=== PATIENT | male | born 1945 | race Caucasian/White ===

== ENCOUNTER → 2016-07-06 | Outpatient (CLI) | payer OTHER ==
[~2016-07-06] MED LIST: CIPR-255 PO; HYDR-5688 PO; MISC8TAB PO; MULT-506 PO; OMEG10007 PO; OXYC-57 PO; PHEN-775 PO; PRCUNK PO; PRLSR20 PO; PYRUNK PO; TAMS0.4C38 PO; TERA5CAP PO; TRIPLE FLEX PO
--- NOTE | 2016-07-06 12:45 | DIAGNOSTIC IMAGING REPORT ---
CHEST 2 VIEWS ROUTINE CLINICAL HISTORY: N20.0 [id number] PREOPERATIVE CHEST COMPARISON STUDY: No previous studies for comparison. FINDINGS: The cardiac and mediastinal contours are normal. There is no evidence of focal pulmonary consolidation. There is no evidence of failure. No pleural effusions are visualized.[ IMPRESSION: No active disease in the chest. Electronically signed by: Todd Birmingham M.D. 07/06/2016 12:44 PM Dictated Date/Time: 07/06/2016 12:44 PM
--- NOTE | 2016-07-06 13:22 | DIAGNOSTIC IMAGING REPORT ---
KUB HISTORY: N20.0 Nephrolithiasis BE DONE PRIOR TO [id number] COMPARISON: None. FINDINGS: The bowel gas pattern is unremarkable. There are no dilated loops of small bowel to suggest an obstruction. There are few punctate bilateral renal calculi which are partially obscured by overlying bowel gas. No left ureteral calculi. There is a 6 mm calcification overlying the right L5 transverse process. Calcifications in the deep pelvis likely represent phleboliths. No pneumoperitoneum or pneumatosis. IMPRESSION: 1. A 6 mm calcification overlying the right L5 transverse process. This may represent a mid right ureteral stone. 2. Bilateral nephrolithiasis. Electronically signed by: John Callaway M.D. 07/06/2016 1:20 PM Dictated Date/Time: 07/06/2016 1:19 PM
[2016-07-06 13:27] LABS: BASO % 0.2 %; BASO ABS # 0.02 K/uL (0-0.2); COMPLETE YES; HEMATOCRIT 43.9 % (42-52); IG% 0.1 %; LYMPH % 11.4 %; LYMPH ABS # 0.96 K/uL (1.2-3.4); MEAN CELL VOLUME 92.6 fL (80-100); MEAN CORPUSCULAR HEMOGLOBIN 32.1 pg (25-34); MEAN CORPUSCULAR HGB CONC 34.6 g/dl (32-36); MEAN PLATELET VOLUME 10.1 fL (7.4-10.4); MONO % 6.7 %; NEUT % 80.6 %; PLATELET COUNT 141 K/uL (130-400); RED BLOOD COUNT 4.74 M/uL (4.7-6.1)
[2016-07-06 13:34] LABS: URINE APPEARANCE CLEAR (CLEAR); URINE BILIRUBIN NEG (NEG); URINE COLOR DK YELLOW; URINE EPITHELIAL CELL AUTO 20-30 /lpf (0-5); URINE NITRITE NEG (NEG); URINE SPECIFIC GRAVITY 1.025 (1.000-1.030); UROBILINOGEN NEG (NEG)
[2016-07-06 13:42] LABS: MANUAL MICROSCOPIC REQUIRED? NO; REVIEW REQ? NO
[2016-07-06 15:24] LABS: BLOOD UREA NITROGEN 33 mg/dl (7-18); BUN/CREATININE RATIO 19.3 (10-20); CARBON DIOXIDE 32 mmol/L (21-32); CHLORIDE 108 mmol/L (98-107); POTASSIUM 4.4 mmol/L (3.5-5.1); SODIUM 142 mmol/L (136-145)
== END | disposition home or self-care (01) ==
LOC: C.CPL 11:59
PROVIDERS: ATTEND Urology
DX: N20.0 Calculus of kidney (principal); Z01.818 Encounter for other preprocedural examination

== ENCOUNTER → 2016-07-08 | Day surgery (SDC) | payer OTHER ==
[2016-07-07 11:04] VITALS: Ht 175.3 cm; Wt 77.3 kg
[~2016-07-08] VITALS: Ht 175.3 cm; Wt 77.3 kg
[~2016-07-08] MED LIST changes: +ACETAMINOPHEN 325 MG TAB PO PRN; +ATROPINE SULFATE 0.1 MG/ML 5ML SYR IV PRN; +CIPROFLOXACIN 400MG / D5W IV SCH; +EpHEDrine SULFATE 50MG/5ML SYR ONE; +EpHEDrine SULFATE INJ 50 MG/ML AMP IV PRN; +FENTANYL CITRATE INJ 50 MCG/1 ML 2 ML VIAL IV PRN; +FENTANYL CITRATE INJ 50 MCG/1 ML 2 ML VIAL ONE; +HYDROmorphone INJ 1 MG/ML SYR IV PRN; +LACTATED RINGER'S 1000ML 1,000 ML IV SCH; +LIDOCAINE HCL 2% 2 ML VIAL (20MG/ML) ONE; +MIDAZOLAM HCL 1 MG/ML 2ML VIAL ONE; -OMEG10007 PO; +ONDANSETRON INJ 2 MG/ML 2 ML VIAL IV PRN; +ONDANSETRON INJ 2 MG/ML 2 ML VIAL ONE; +OXYCODONE/ACETAMINOPHEN 5-325 TAB PO PRN; -PRCUNK PO; +PROPOFOL IV EMULSION 10 MG/ML 20 ML VIAL IV ONE; -PYRUNK PO; +SODIUM CHLORIDE 0.9% 1000ML 1,000 ML IV SCH; -TERA5CAP PO; -TRIPLE FLEX PO
--- NOTE | 2016-07-08 10:22 | History & Physical Bridge Note ---
H&P Re-Evaluation Bridge Note: I have examined the patient, reviewed the History & Physical and in the interval since the performance of the History & Physical I have noted the following changes of clinical significance: No changes noted
--- NOTE | 2016-07-08 11:16 | [facility] Post Operative Brief Note ---
Immediate Operative Summary Operative Date July 08, 2016. Pre-Operative Diagnosis Right ureteral calculi Post-Operative Diagnosis Same Procedure(s) Performed Right Extracorporeal Shock Wave Lithotripsy - Ureteral Surgeon Dr. Elise Crayon Sorting Machine Feeder Surgeon(s) None Estimated Blood Loss 0 mL Findings right ureteral stone Specimens None Drains none Anesthesia gen Complication(s) None Disposition Recovery Room / PACU (stable)
--- NOTE | 2016-07-08 11:17 | Discharge Instructions-SurgCtr ---
Discharge Instructions Date of Service July 08, 2016. Visit Reason for Visit: Stones Discharge Discharge Diagnosis / Problem: stones Discharge Goals Goal(s): Decrease discomfort, Improve function, Increase independence, Improve disease control Medications Stopped Medications Name(s): no recent blood thinners Activity Recommendations Activity Limitations: resume your previous activity Lifting Limitations: none Exercise/Sports Limitations: none May Resume Sexual Activity: when tolerated Shower/Bathe: no limitations Driving or Machine Use: resume 1 day after discharge Anesthesia . Post Anesthesia Instructions: If you have had General Anesthesia or IV Sedation: * Do not drive today. * Resume driving when surgeon permits. * Do not make important decisions or sign legal documents today. * Call surgeon for: 1. Temperature elevations greater than 101 degrees F. 2. Uncontrollable pain. 3. Excessive bleeding. 4. Persistent nausea and vomiting. 5. Medication intolerance (nausea, vomiting or rash). * For nausea and vomiting use only clear liquids such as: tea, soda, bouillon until nausea subsides, then gradually increase diet as tolerated. * If you have any concerns or questions, call your surgeon's office. If physician is unavailable and it is an emergency, call 911 or go to the nearest emergency room. . Diet Recommendations Home Diet: no limitations, resume previous diet Procedures Procedures Performed: Right Extracorporeal Shock Wave Lithotripsy - Ureteral Pending Studies Studies pending at discharge: no Medical Emergencies . Who to Call and When: Medical Emergencies: If at any time you feel your situation is an emergency, please call 911 immediately. . Non-Emergent Contact Non-Emergency issues call your: Urologist Call Non-Emergent contact if: you have a fever, temperature is above 101.5, your pain is not controlled, your pain is worsening . . "Provider Documentation" section prepared by Ezequiel Parra. .
--- NOTE | 2016-07-08 11:53 | Anesthesia Progress Nt - [facility] ---
Anesthesia Post Op Note Date & Time July 08, 2016 at 11:53 Vital Signs Pain Intensity: 0 Vital Signs Past 12 Hours Date Time Temp Pulse Resp B/P Pulse Ox O2 Delivery O2 Flow Rate FiO2 07/08/16 11:24 36.6 53 16 113/69 98 Mask 6 07/08/16 08:25 36.9 53 16 126/76 97 Room Air Notes Mental Status: alert / awake / arousable, participated in evaluation Pt Amnestic to Procedure: Yes Nausea / Vomiting: adequately controlled Pain: adequately controlled Airway Patency, RR, SpO2: stable & adequate BP & HR: stable & adequate Hydration State: stable & adequate Anesthetic Complications: no major complications apparent
[2016-07-08 12:07] VITALS: TEMP 36.8
--- NOTE | 2016-07-08 12:23 | OPERATIVE REPORT ---
DATE OF OPERATION: 07/08/2016 PREOPERATIVE DIAGNOSIS: Right ureteral calculus. POSTOPERATIVE DIAGNOSIS: Right ureteral calculus. PROCEDURE PERFORMED: Right extracorporeal shockwave lithotripsy. ANESTHESIA: General. ESTIMATED BLOOD LOSS: 0. URINE OUTPUT: Not recorded. SPECIMENS: None. COMPLICATIONS: There were no complications. DESCRIPTION OF THE PROCEDURE: Mr. Clarke was identified in the preoperative holding area. Appropriate informed consents reviewed and completed and the patient was transported to the operating suite. Upon arrival he received appropriate preoperative antibiotics in the form of ciprofloxacin. Adequate general anesthesia was achieved and the stone was localized under fluoroscopy with lithotripsy commenced for a total of 3000 shocks delivered to the stone. Further details can be found on the [place] [facility] Stone Management Information Sheet. At the conclusion of the case he was extubated and taken to the PACU in stable condition. I attest to the content of the Intraoperative Record and any orders documented therein. Any exceptio ns are noted below.
[2016-07-08 12:30] VITALS: BP 129/71; PULSE 50; O2SAT 98
== END | disposition home or self-care (01) ==
LOC: X.SURG 08:01
PROVIDERS: ATTEND Urology
DX: N20.1 Calculus of ureter (principal); Z84.1 Family history of disorders of kidney and ureter

== ENCOUNTER → 2016-07-21 | Outpatient (CLI) | payer OTHER ==
[~2016-07-21] MED LIST changes: -ACETAMINOPHEN 325 MG TAB PO PRN; -ATROPINE SULFATE 0.1 MG/ML 5ML SYR IV PRN; -CIPROFLOXACIN 400MG / D5W IV SCH; -EpHEDrine SULFATE 50MG/5ML SYR ONE; -EpHEDrine SULFATE INJ 50 MG/ML AMP IV PRN; -FENTANYL CITRATE INJ 50 MCG/1 ML 2 ML VIAL IV PRN; -FENTANYL CITRATE INJ 50 MCG/1 ML 2 ML VIAL ONE; -HYDROmorphone INJ 1 MG/ML SYR IV PRN; -LACTATED RINGER'S 1000ML 1,000 ML IV SCH; -LIDOCAINE HCL 2% 2 ML VIAL (20MG/ML) ONE; -MIDAZOLAM HCL 1 MG/ML 2ML VIAL ONE; -ONDANSETRON INJ 2 MG/ML 2 ML VIAL IV PRN; -ONDANSETRON INJ 2 MG/ML 2 ML VIAL ONE; -OXYCODONE/ACETAMINOPHEN 5-325 TAB PO PRN; -PROPOFOL IV EMULSION 10 MG/ML 20 ML VIAL IV ONE; -SODIUM CHLORIDE 0.9% 1000ML 1,000 ML IV SCH
--- NOTE | 2016-07-21 11:51 | DIAGNOSTIC IMAGING REPORT ---
KUB HISTORY: Nephrolithiasis. COMPARISON: KUB 07/06/2016. FINDINGS: The bowel gas pattern is unremarkable. There are no dilated loops of small bowel to suggest an obstruction. There are few punctate bilateral renal calculi, unchanged. No left ureteral calculi. The 6 mm right ureteral stone is now seen within the distal right ureter. No pneumoperitoneum or pneumatosis. IMPRESSION: 1. The 6 mm right ureteral stone is now seen within the distal right ureter. 2. Stable bilateral nephrolithiasis. Electronically signed by: Jonh Callaway M.D. 07/21/2016 11:50 AM Dictated Date/Time: 07/21/2016 11:48 AM
== END | disposition home or self-care (01) ==
LOC: C.RAD 11:22
PROVIDERS: ATTEND Urology
DX: N20.0 Calculus of kidney (principal)

== ENCOUNTER → 2016-07-22 | Day surgery (SDC) | payer OTHER ==
[2016-07-21 14:53] VITALS: Ht 175.3 cm; Wt 77.3 kg
[~2016-07-22] VITALS: Ht 175.3 cm; Wt 77.3 kg
[~2016-07-22] MED LIST changes: +ATROPINE SULFATE 0.1 MG/ML 5ML SYR IV PRN; +CIPROFLOXACIN 400MG / D5W IV SCH; +DEXAMETHASONE SOD INJ 4 MG/ML VIAL ONE; +EpHEDrine SULFATE INJ 50 MG/ML AMP IV PRN; +FENTANYL CITRATE INJ 50 MCG/1 ML 2 ML VIAL IV PRN; +FENTANYL CITRATE INJ 50 MCG/1 ML 2 ML VIAL ONE; +LACTATED RINGER'S 1000ML 1,000 ML IV SCH; +LIDOCAINE HCL 2% 2 ML VIAL (20MG/ML) ONE; +ONDANSETRON INJ 2 MG/ML 2 ML VIAL ONE; +OXYCODONE/ACETAMINOPHEN 5-325 TAB PO PRN; +PROPOFOL IV EMULSION 10 MG/ML 20 ML VIAL IV ONE
--- NOTE | 2016-07-22 11:39 | Discharge Instructions ---
Discharge Instructions Date of Service July 22, 2016. Admission Reason for Admission: Stones Discharge Discharge Diagnosis / Problem: R distal stones s/p ESWL Discharge Goals Goal(s): Decrease discomfort, Improve disease control, Therapeutic intervention Activity Recommendations Activity Limitations: per Instructions/Follow-up section Lifting Limitations: no more than 25 pounds, gradually increase as tolerated Exercise/Sports Limitations: rest today, gradually increase as tolerated May Resume Sexual Activity: when tolerated Shower/Bathe: no limitations Driving or Machine Use: resume 1 day after discharge . Instructions / Follow-Up Instructions / Follow-Up Strain urine as instructed KUB Xray prior to follow-up visit Discharge Diet Recommended Diet: Regular Diet (good fluid intake) Procedures Procedures Performed: Right Extracorporeal Shock Wave Lithotripsy, Repeat - Ureteral Pending Studies Studies pending at discharge: no Medical Emergencies . Who to Call and When: Medical Emergencies: If at any time you feel your situation is an emergency, please call 911 immediately. . Non-Emergent Contact Non-Emergency issues call your: Urologist Call Non-Emergent contact if: you have a fever, temperature is above 101, your pain is not controlled, your pain is worsening, your pain is unusual for you, your pain is concerning you, you have any medication questions . . "Provider Documentation" section prepared by Ralph Pierre. . VTE Core Measure Inpt VTE Proph given/why not?: SCD's
--- NOTE | 2016-07-22 11:41 | [facility] Post Operative Brief Note ---
Immediate Operative Summary Operative Date July 22, 2016. Pre-Operative Diagnosis Right Ureteral Calculi Post-Operative Diagnosis Same Procedure(s) Performed Right Extracorporeal Shock Wave Lithotripsy, Repeat - Ureteral Surgeon Dr. Kevin Pierre Lift Mechanic Surgeon(s) None Estimated Blood Loss 0 mL Findings Good stone fragmentation Specimens None Drains NA Anesthesia GALMA Complication(s) None Disposition Recovery Room / PACU
--- NOTE | 2016-07-22 11:55 | Anesthesia Progress Nt - [facility] ---
Anesthesia Post Op Note Date & Time July 22, 2016 at 11:55 Vital Signs Pain Intensity: 0 Vital Signs Past 12 Hours Date Time Temp Pulse Resp B/P Pulse Ox O2 Delivery O2 Flow Rate FiO2 07/22/16 11:46 41 13 07/22/16 11:46 41 13 133/77 99 07/22/16 11:41 44 20 136/76 98 07/22/16 11:41 45 20 07/22/16 11:37 127/74 07/22/16 11:36 37.0 44 16 127/74 98 Diffusion Mask 6 07/22/16 09:53 36.6 50 16 119/74 96 Room Air Notes Mental Status: alert / awake / arousable, participated in evaluation Pt Amnestic to Procedure: Yes Nausea / Vomiting: adequately controlled Pain: adequately controlled Airway Patency, RR, SpO2: stable & adequate BP & HR: stable & adequate Hydration State: stable & adequate Anesthetic Complications: no major complications apparent
[2016-07-22 12:10] VITALS: TEMP 36.5
[2016-07-22 12:23] VITALS: BP 129/77; PULSE 47; O2SAT 98
--- NOTE | 2016-07-22 12:32 | OPERATIVE REPORT ---
PREOPERATIVE DIAGNOSIS: Right distal ureteral stone. POSTOPERATIVE DIAGNOSIS: Same. PROCEDURE: Right distal ureteral extracorporeal shockwave lithotripsy. SURGEON: Dr. Ralph Pierre. PLASTICS TECHNICIAN: None. ANESTHESIA: General anesthesia with laryngeal mask. COMPLICATIONS: None. FINDINGS: Good stone fragmentation on fluoroscopy. DETAILS OF PROCEDURE: The patient was brought to the litho suite. He was correctly identified and the stone was visualized on his most recent x-rays. After the correct time out was performed the patient was positioned over the therapy head. An adequate level of anesthesia was administered. The extracorporeal shockwave lithotripsy treatment was then commenced. Please see the [place] [facility] Stone Management sheet for complete treatment summary. After completion of the procedure the patient was taken to the recovery room in stable condition.
== END | disposition home or self-care (01) ==
LOC: X.SURG 09:34
PROVIDERS: ATTEND Urology
DX: N20.1 Calculus of ureter (principal); N20.0 Calculus of kidney; Z85.828 Personal history of other malignant neoplasm of skin; Z84.1 Family history of disorders of kidney and ureter

== ENCOUNTER → 2016-08-10 | Outpatient (CLI) | payer OTHER ==
[~2016-08-10] MED LIST changes: -ATROPINE SULFATE 0.1 MG/ML 5ML SYR IV PRN; -CIPROFLOXACIN 400MG / D5W IV SCH; -DEXAMETHASONE SOD INJ 4 MG/ML VIAL ONE; -EpHEDrine SULFATE INJ 50 MG/ML AMP IV PRN; -FENTANYL CITRATE INJ 50 MCG/1 ML 2 ML VIAL IV PRN; -FENTANYL CITRATE INJ 50 MCG/1 ML 2 ML VIAL ONE; -LACTATED RINGER'S 1000ML 1,000 ML IV SCH; -LIDOCAINE HCL 2% 2 ML VIAL (20MG/ML) ONE; -ONDANSETRON INJ 2 MG/ML 2 ML VIAL ONE; -OXYCODONE/ACETAMINOPHEN 5-325 TAB PO PRN; -PROPOFOL IV EMULSION 10 MG/ML 20 ML VIAL IV ONE
== END | disposition home or self-care (01) ==
LOC: C.LABSPEC 17:01
PROVIDERS: ATTEND Urology
DX: N20.0 Calculus of kidney (principal)

== ENCOUNTER → 2016-08-10 | Outpatient (CLI) | payer OTHER ==
--- NOTE | 2016-08-10 11:00 | DIAGNOSTIC IMAGING REPORT ---
KUB CLINICAL HISTORY: Nephrolithiasis. COMPARISON STUDY: KUB July 21, 2016. FINDINGS: The 6 mm distal right ureteral calculus is similar position to exam of July 21, 2016. There are numerous bilateral renal calculi, left more numerous than right. Additional pelvic calcifications reflect phleboliths. IMPRESSION: 1. No change in the 6 mm distal right ureteral calculus. 2. Bilateral nephrolithiasis. Electronically signed by: Devendra Perez M.D. 08/10/2016 10:59 AM Dictated Date/Time: 08/10/2016 10:57 AM
== END | disposition home or self-care (01) ==
LOC: C.RAD 10:37
PROVIDERS: ATTEND Urology
DX: N20.0 Calculus of kidney (principal)

== ENCOUNTER → 2016-09-26 | Outpatient (CLI) | payer OTHER ==
[2016-09-26 17:35] LABS: BASO % 0.3 %; BASO ABS # 0.02 K/uL (0-0.2); COMPLETE YES; EOS % 2.2 %; HEMATOCRIT 40.3 % (42-52); IG% 0.2 %; LYMPH % 23.9 %; MEAN CORPUSCULAR HGB CONC 34.7 g/dl (32-36); MEAN PLATELET VOLUME 10.1 fL (7.4-10.4); MONO % 8.8 %; NEUT % 64.6 %; PLATELET COUNT 156 K/uL (130-400); RED BLOOD COUNT 4.38 M/uL (4.7-6.1); WHITE BLOOD COUNT 6.28 K/uL (4.8-10.8)
[2016-09-26 17:56] LABS: BLOOD UREA NITROGEN 25 mg/dl (7-18); BUN/CREATININE RATIO 25.4 (10-20); CALCIUM 8.9 mg/dl (8.5-10.1); CARBON DIOXIDE 29 mmol/L (21-32); CHLORIDE 111 mmol/L (98-107); GLUCOSE 88 mg/dl (70-99); SODIUM 144 mmol/L (136-145)
== END | disposition home or self-care (01) ==
LOC: C.LAB 16:58
PROVIDERS: ATTEND Urology
DX: N20.0 Calculus of kidney (principal)

== ENCOUNTER → 2016-09-26 | Outpatient (CLI) | payer OTHER ==
--- NOTE | 2016-09-26 13:54 | DIAGNOSTIC IMAGING REPORT ---
KUB CLINICAL HISTORY: NEPHROLITHIASIS nephrocalcinosis COMPARISON STUDY: 08/10/2016 FINDINGS: Limited study due to considerable respiratory motion. Calcifications are not appreciated possibly due to overlying bowel content. Several pelvic calcifications are present. A 6 mm distal right ureteral calculus is again noted and appears to be similar area in nonobstructive bowel pattern. IMPRESSION: Limited study showing considerable respiratory motion artifact. Unchanging 6 mm calculus distal right ureter. Poor visibility of the kidneys The above report was generated using voice recognition software. It may contain grammatical, syntax or spelling errors. Electronically signed by: Jono Dougherty M.D. 09/26/2016 1:53 PM Dictated Date/Time: 09/26/2016 1:52 PM
== END | disposition home or self-care (01) ==
LOC: C.RAD 13:34
PROVIDERS: ATTEND Urology
DX: N20.1 Calculus of ureter (principal); N20.0 Calculus of kidney

== ENCOUNTER → 2016-10-04 | Day surgery (SDC) | payer OTHER ==
[2016-09-27 15:11] VITALS: Ht 175.3 cm; Wt 77.3 kg
[~2016-10-04] VITALS: Ht 175.3 cm; Wt 77.3 kg
[~2016-10-04] MED LIST changes: +ACETAMINOPHEN 325 MG TAB PO PRN; +ATROPINE SULFATE 0.1 MG/ML 5ML SYR IV PRN; +CIPROFLOXACIN / D5W 400 MG IV SCH; +DEXAMETHASONE SOD INJ 4 MG/ML VIAL ONE; +EpHEDrine SULFATE INJ 50 MG/ML AMP ONE; +FENTANYL CITRATE INJ 50 MCG/1 ML 2 ML VIAL IV PRN; +FENTANYL CITRATE INJ 50 MCG/1 ML 2 ML VIAL ONE; +LACTATED RINGER'S 1000ML 1,000 ML IV SCH; +LIDOCAINE HCL 2% 2 ML VIAL (20MG/ML) ONE; +MIDAZOLAM HCL 1 MG/ML 2ML VIAL ONE; +ONDANSETRON INJ 2 MG/ML 2 ML VIAL IV PRN; +ONDANSETRON INJ 2 MG/ML 2 ML VIAL ONE; -OXYC-57 PO; +OXYCODONE/ACETAMINOPHEN 5-325 TAB PO PRN; -PRLSR20 PO; +PROPOFOL IV EMULSION 10 MG/ML 20 ML VIAL IV ONE; +SODIUM CHLORIDE 0.9% 1000ML 1,000 ML IV SCH; +TAMSULOSIN HCL 0.4 MG CAP PO ONE
[2016-10-04 11:11] VITALS: BP 143/72; PULSE 55; TEMP 36.4; O2SAT 95
[2016-10-04] MEDS: CONRAY 30% 150ML BOTTLE ONE ×2 (12:47→13:30)
--- NOTE | 2016-10-04 13:47 | Discharge Instructions ---
Discharge Instructions Date of Service Oct 04, 2016. Admission Reason for Admission: Stones Discharge Discharge Diagnosis / Problem: stones Discharge Goals Goal(s): Decrease discomfort, Improve function, Increase independence, Improve disease control, Prevent Disease Progression Activity Recommendations Activity Limitations: resume your previous activity Lifting Limitations: none Exercise/Sports Limitations: none May Resume Sexual Activity: when tolerated Shower/Bathe: no limitations Driving or Machine Use: resume 1 day after discharge . Instructions / Follow-Up Instructions / Follow-Up Please keep your previously scheduled appointment for stent removal Discharge Diet Recommended Diet: Regular Diet Procedures Procedures Performed: Cystoscopy, Right Ureteroscopy, Laser Lithalopaxy; Stent Pending Studies Studies pending at discharge: no Medical Emergencies . Who to Call and When: Medical Emergencies: If at any time you feel your situation is an emergency, please call 911 immediately. . Non-Emergent Contact Non-Emergency issues call your: Urologist Call Non-Emergent contact if: you have a fever, temperature is above 101.5, your pain is not controlled, your pain is worsening . . "Provider Documentation" section prepared by Ezequiel Parra. . VTE Core Measure Inpt VTE Proph given/why not?: Treatment not indicated [place] Drug Monitoring Program Search Results: patient reviewed within database, no issues identified Drug Monitoring Findings: Prior prescriptions all appear appropriate
--- NOTE | 2016-10-04 13:57 | [facility] Operative Report ---
Operative Report Operative Date Oct 04, 2016. Pre-Operative Diagnosis Right ureteral stone Post-Operative Diagnosis Right ureteral stone; bladder calculi Procedure(s) Performed Cystoscopy, Right Ureteroscopy,laser lithotripsy; Laser Lithalopaxy; Stent ([id number]) Surgeon Arik Contact Representative Surgeon(s) None Estimated Blood Loss 5cc Findings Bladder calculus impacted at the bladder neck; right distal ureteral calculus impacted approximately 3 cm above the ureteral orifice Specimens A: Stone for analysis Drains [id number] stent Anesthesia Gen. Complication(s) None Disposition Recovery Room / PACU (stable) Indications Persistent right ureteral calculus Description of Procedure Guerita Clarke was identified in the preoperative holding area appropriate informed consents were reviewed and completed and the patient was transported to the operating suite. Upon arrival he received appropriate preoperative antibiotics in the form of ciprofloxacin. Adequate general anesthesia was achieved and he was placed in dorsal lithotomy position where he was sterilely prepped and draped in standard fashion. I began the case by passing a 22 [place] cystoscope with 30 lens. He had wide caliber strictures of the urethra but I was able to navigate the scope through these. His prostate was moderately enlarged with a relatively high bladder neck. Immediately upon passing the scope into the bladder I encountered a yellow and black appearing calculus arising from the right side of the bladder neck. The stone appeared to be stuck to prostate tissue that was protruding slightly into the bladder. Utilizing a 5 [place] open-ended catheter was able to manipulate this and free it from its site of impaction the bladder wall. Numerous small fragments were easily able to be irrigated out of the bladder, however the largest fragments were too large to irrigate through the scope. Rather than treat these now I turned my attention the right ureteral orifice. I passed a sensor wire and a 5 [place] open-ended catheter into the ureter. There was an opacity easily visualized several centimeters above the bladder, and the wire easily was manipulated beyond this. I then reentered the bladder with a semirigid ureteroscope and guided into the distal right ureter. I advanced this up towards the opacity however just distal to the opacity there were significant mounding of tissue and inflammation secondary to the impaction of this distal ureteral stone. I passed a second wire through my scope to help guide my scope through the ureter and in doing so I freed the stone from its site of impaction. Unfortunately with gentle irrigation we watched the opacity move retrograde up the hydronephrotic proximal ureter and into the kidney. I attempted to adjacent this with a semirigid ureteroscope however the stone was beyond the reach of the scope. Leaving the [address] I withdrew the semirigid ureteroscope and passed a flexible ureteroscope to the level of the kidney. Full inspection revealed a moderate to large sized calculus free- floating in the renal pelvis. I was able to push this into a posterior calyx and passed a 400 laser fiber. I utilized this laser fiber to fragment the stone into pieces all less than 1 mm and deemed safe for spontaneous passage. I then performed a repeat renoscopy as well as an exit ureteroscopy confirming no other large fragments. I paid particular attention to the area in the distal ureter where the stone had previously been impacted, and there appeared to be no other fragments in that location. I then placed a 6 [place] by 26 cm double-J ureteral stent. Before concluding the case a use the same 400 laser fiber to fragment the stone that was within the bladder. I was then able to irrigate these fragments out of the bladder and concluded the case. Patient was extubated and taken to the PACU in stable condition. I attest to the content of the Intraoperative Record and any orders documented therein. Any exceptions are noted below.
[2016-10-04 14:28] VITALS: BP 136/65; PULSE 54; TEMP 36.5; O2SAT 96
[2016-10-04 14:50] VITALS: BP 134/66; PULSE 60; O2SAT 96
--- NOTE | 2016-10-04 15:26 | Anesthesiology Progress Note ---
Anesthesia Post Op Note Date & Time Oct 04, 2016 at 15:26 Vital Signs Pain Intensity: 0 Vital Signs Past 12 Hours Date Time Temp Pulse Resp B/P (MAP) Pulse Ox O2 Delivery O2 Flow Rate FiO2 10/04/16 14:50 60 18 134/66 96 Room Air 10/04/16 14:28 36.5 54 16 136/65 96 Room Air 10/04/16 14:20 36.6 61 16 130/72 96 Room Air 10/04/16 14:10 60 16 146/75 98 Room Air 10/04/16 14:00 62 16 129/75 99 Mask 10 10/04/16 13:50 64 16 131/65 99 Mask 10 10/04/16 13:40 36.4 57 14 129/72 99 Mask 10 10/04/16 11:11 36.4 55 18 143/72 (95) 95 Room Air Notes Mental Status: alert / awake / arousable, participated in evaluation Pt Amnestic to Procedure: Yes Nausea / Vomiting: adequately controlled Pain: adequately controlled Airway Patency, RR, SpO2: stable & adequate BP & HR: stable & adequate Hydration State: stable & adequate Anesthetic Complications: no major complications apparent
[2016-10-04 15:30] VITALS: BP 120/62; PULSE 58; TEMP 36.6; O2SAT 97
== END | disposition home or self-care (01) ==
LOC: C.ACU 10:48
PROVIDERS: ATTEND Urology
DX: N20.1 Calculus of ureter (principal); N21.0 Calculus in bladder; N52.9 Male erectile dysfunction, unspecified; Z85.828 Personal history of other malignant neoplasm of skin; Z84.1 Family history of disorders of kidney and ureter; K21.9 Gastro-esophageal reflux disease without esophagitis; N40.0 Benign prostatic hyperplasia without lower urinary tract symptoms

== ENCOUNTER → 2016-10-10 | Outpatient (CLI) | payer OTHER ==
[~2016-10-10] MED LIST changes: -ACETAMINOPHEN 325 MG TAB PO PRN; -ATROPINE SULFATE 0.1 MG/ML 5ML SYR IV PRN; -CIPROFLOXACIN / D5W 400 MG IV SCH; -DEXAMETHASONE SOD INJ 4 MG/ML VIAL ONE; -EpHEDrine SULFATE INJ 50 MG/ML AMP ONE; -FENTANYL CITRATE INJ 50 MCG/1 ML 2 ML VIAL IV PRN; -FENTANYL CITRATE INJ 50 MCG/1 ML 2 ML VIAL ONE; -LACTATED RINGER'S 1000ML 1,000 ML IV SCH; -LIDOCAINE HCL 2% 2 ML VIAL (20MG/ML) ONE; -MIDAZOLAM HCL 1 MG/ML 2ML VIAL ONE; -ONDANSETRON INJ 2 MG/ML 2 ML VIAL IV PRN; -ONDANSETRON INJ 2 MG/ML 2 ML VIAL ONE; -OXYCODONE/ACETAMINOPHEN 5-325 TAB PO PRN; -PROPOFOL IV EMULSION 10 MG/ML 20 ML VIAL IV ONE; -SODIUM CHLORIDE 0.9% 1000ML 1,000 ML IV SCH; -TAMSULOSIN HCL 0.4 MG CAP PO ONE
--- NOTE | 2016-10-10 08:09 | DIAGNOSTIC IMAGING REPORT ---
KUB CLINICAL HISTORY: 71 years-old Male presenting with right-sided kidney stone. TECHNIQUE: Single supine view of the abdomen was obtained. COMPARISON: 09/26/[address] from 06/24/2016. FINDINGS: Previously noted 6 mm distal right ureteral calculus is no longer present. A double-J right ureteral stent is now in place. Moderate stool burden somewhat degrades evaluation for renal calculus. Within this limitation, small calcification noted at the right upper pole and multiple left lower pole calculi noted. Phleboliths also noted in the pelvis. No convincing evidence of calcification along the course of the ureters. Left inguinal surgical clips may indicate prior hernia repair. Atherosclerosis. No evidence of free intraperitoneal gas, pneumatosis, or portal venous gas. Degenerative changes of the spine. IMPRESSION: 1. Interval passage of the distal right ureteral calculus with interval placement of a right ureteral stent. 2. Bilateral nephrolithiasis. Electronically signed by: Jimmy Ward M.D. 10/10/2016 8:08 AM Dictated Date/Time: 10/10/2016 8:05 AM
== END | disposition home or self-care (01) ==
LOC: C.RAD 07:43
PROVIDERS: ATTEND Urology
DX: N20.0 Calculus of kidney (principal)